=== PATIENT | female | born 1980 | race Caucasian/White ===

== ENCOUNTER 2017-06-16 20:54 | Emergency (ER) | payer MEDICAID ==
[2017-06-16 23:27] LABS: BASOPHIL % 0.5 % (0-2); PLATELET COUNT 311 x10^3mcL (130-400)
[2017-06-16 23:34] LABS: RED CELL DISTRIBUTION WIDTH 14.8 % (11.5-14.5)
[2017-06-17 03:47] VITALS: BP 124/70
== END 2017-06-17 03:47 | disposition home or self-care (01) ==
LOC: ED 20:54
PROVIDERS: Emergency Medicine
DX: N93.8 Other specified abnormal uterine and vaginal bleeding (principal); N39.0 Urinary tract infection, site not specified; Z98.890 Other specified postprocedural states
CPT/HCPCS: 36415; Q0092

== ENCOUNTER 2018-01-19 21:56 | Emergency (ER) | payer MEDICAID ==
[~2018-01-19] VITALS: Ht 157.5 cm; Wt 95.7 kg
[2018-01-19 21:59] VITALS: Ht 157.5 cm; Wt 95.7 kg
[2018-01-20 06:52] VITALS: BP 125/74
== END 2018-01-20 06:52 | disposition home or self-care (01) ==
LOC: ED 21:56
DX: S43.005A Unspecified dislocation of left shoulder joint, initial encounter (principal); Z88.8 Allergy status to other drugs, medicaments and biological substances; W01.0XXA Fall on same level from slipping, tripping and stumbling without subsequent striking against object, initial encounter; Y93.89 Activity, other specified; Y92.89 Other specified places as the place of occurrence of the external cause; Y99.8 Other external cause status
CPT/HCPCS: J2250; J2704; J3010; J3490; Q0092

== ENCOUNTER 2018-01-22 13:10 | Emergency (ER) | payer MEDICAID ==
[~2018-01-22] VITALS: Ht 165.1 cm; Wt 94.3 kg
[2018-01-22 15:47] VITALS: BP 116/79
== END 2018-01-22 15:47 | disposition home or self-care (01) ==
LOC: ED 13:10
DX: S43.005A Unspecified dislocation of left shoulder joint, initial encounter (principal); Z88.8 Allergy status to other drugs, medicaments and biological substances; W18.2XXA Fall in (into) shower or empty bathtub, initial encounter; Y93.89 Activity, other specified; Y92.89 Other specified places as the place of occurrence of the external cause; Y99.8 Other external cause status

== ENCOUNTER 2018-03-16 18:44 | Emergency (ER) | payer MEDICAID ==
[2018-03-16 19:21] VITALS: BP 124/79
== END 2018-03-16 21:16 | disposition home or self-care (01) ==
LOC: ED 18:44
DX: R58 Hemorrhage, not elsewhere classified (principal); L98.9 Disorder of the skin and subcutaneous tissue, unspecified; Z88.8 Allergy status to other drugs, medicaments and biological substances

== ENCOUNTER 2018-12-03 10:19 | Emergency (ER) | payer MEDICAID ==
[~2018-12-03] VITALS: Ht 162.6 cm; Wt 99.3 kg
[2018-12-03 10:26] VITALS: Ht 162.6 cm; Wt 99.3 kg
[2018-12-03 12:05] LABS: CALCIUM 8.6 mg/dL (8.5-10.1); CARBON DIOXIDE 28.3 mmol/L (21-32); CHLORIDE SERUM 102 mmol/L (98-107); CREATININE SERUM 0.7 mg/dL (0.6-1.0); GFR1 > 60 mL/min; GLUCOSE SERUM 93 mg/dL (74-106); POTASSIUM SERUM 4.3 mmol/L (3.5-5.1); SODIUM SERUM 137 mmol/L (136-145)
[2018-12-03 12:08] LABS: ALBUMIN 3.7 g/dL (3.4-5.0); ALKALINE PHOSPHATASE 86 U/L (46-116); ALT/SGPT 112 U/L (14-59); AST/SGOT 48 U/L (15-37); BILIRUBIN TOTAL 0.3 mg/dL (0.20-1.00); CHOLESTEROL 183 mg/dL (<200); TOTAL PROTEIN, SERUM 7.7 g/dL (6.4-8.2)
[2018-12-03 12:10] LABS: BASOPHIL % 0.4 % (0-2); PLATELET COUNT 381 x10^3mcL (130-400)
[2018-12-03 12:12] LABS: RED CELL DISTRIBUTION WIDTH 16.2 % (11.5-14.5)
[2018-12-03 13:36] VITALS: BP 121/65
== END 2018-12-03 13:36 | disposition home or self-care (01) ==
LOC: ED 10:19
PROVIDERS: Specialist
DX: R20.2 Paresthesia of skin (principal); M79.602 Pain in left arm; R20.0 Anesthesia of skin; Z98.890 Other specified postprocedural states; Z88.8 Allergy status to other drugs, medicaments and biological substances
CPT/HCPCS: 36415; G0480

== ENCOUNTER 2019-05-04 15:55 | Emergency (ER) | payer SELFPAY ==
[~2019-05-04] VITALS: Ht 167.6 cm; Wt 95.7 kg
[2019-05-04 15:59] VITALS: Ht 167.6 cm; Wt 95.7 kg
[2019-05-04 18:00] VITALS: BP 101/70
== END 2019-05-04 18:00 | disposition home or self-care (01) ==
LOC: ED 15:55
DX: S43.005A Unspecified dislocation of left shoulder joint, initial encounter (principal); Z98.890 Other specified postprocedural states; Z88.6 Allergy status to analgesic agent; X58.XXXA Exposure to other specified factors, initial encounter; Y93.89 Activity, other specified; Y92.89 Other specified places as the place of occurrence of the external cause; Y99.8 Other external cause status
CPT/HCPCS: J3010

== ENCOUNTER 2019-10-20 11:12 | Emergency (ER) | payer MEDICAID ==
[~2019-10-20] VITALS: Ht 154.9 cm; Wt 99.3 kg
[2019-10-20 11:17] VITALS: BP 122/55; Ht 154.9 cm; Wt 99.3 kg
== END 2019-10-20 13:53 | disposition home or self-care (01) ==
LOC: ED 11:12
DX: M25.511 Pain in right shoulder (principal); Z88.8 Allergy status to other drugs, medicaments and biological substances